=== PATIENT | female | born 1980 | race Caucasian/White ===

== ENCOUNTER 2016-07-08 16:20 | Day surgery (SDC) | payer OTHER ==
[~2016-07-08] VITALS: Ht 149.9 cm; Wt 90.5 kg
[2016-07-08] MEDS ORDERED: ZANTAC 150150 MG PO (16:40)
[2016-07-08] MEDS ORDERED: CELEXA 20MG20 MG/TAB PO (16:40)
[2016-07-08] MEDS ORDERED: ALLEGRA ALLERG180 MG PO (16:41)
[2016-07-08] MEDS ORDERED: NEXIUM 40MG40 MG PO (16:41)
[2016-07-08] MEDS ORDERED: FLONASE NASAL S16 GM NS (16:41)
[2016-07-08 16:54] VITALS: BP 108/49; PULSE 633; TEMP 98.6
[2016-07-08 17:25] VITALS: BP 79/48; PULSE 80; TEMP 98
[2016-07-08 17:40] VITALS: BP 81/42; PULSE 74
[2016-07-08 17:55] VITALS: BP 98/53; PULSE 74
== END 2016-07-08 18:00 | disposition home or self-care (01) ==
LOC: SDCO 16:20
DX: K21.0 Gastro-esophageal reflux disease with esophagitis (principal); R13.12 Dysphagia, oropharyngeal phase; K44.9 Diaphragmatic hernia without obstruction or gangrene
CPT/HCPCS: J2250; J3010